=== PATIENT | male | born 1995 | race Caucasian/White ===

== ENCOUNTER → 2020-11-07 | Outpatient (CLI) | payer OTHER | LOC: LAB 07:37 | PROVIDERS: ATTEND Orthopaedic Surgery Sports Medicine | DX: Z01.812 Encounter for preprocedural laboratory examination (principal); Z20.822 Contact with and (suspected) exposure to COVID-19 ==

== ENCOUNTER → 2020-11-08 | Day surgery (SDC) | payer OTHER ==
[~2020-11-08] VITALS: Ht 188 cm; Wt 94.8 kg
--- NOTE | ~2020-11-08 | O ---
[address] [address] OPERATIVE REPORT Name: CHELA PEARL Room #: REG [facility]#: [id number] Admission: 11/08/20 Attend Phys: Denis Balbuena MD Discharge: Date of : 89 Report #: [id number] THIS REPORT FOR: cc: FAM - No family physician/PCP FAM - No family physician/PCP Denis Balbuena MD ~ DATE OF SERVICE: 11/08/2020 SERVICE: Orthopedics. FACILITY: [facility]. SURGEON: Denis Balbuena MD COREMAKING MACHINE SETTER: Ema Fairchild. INDICATION FOR COREMAKING MACHINE SETTER: Extremity positioning, suture management, graft preparation, assistance with reconstruction. PREOPERATIVE DIAGNOSIS: Left knee anterior cruciate ligament tear. POSTOPERATIVE DIAGNOSES: 1. Left knee anterior cruciate ligament tear. 2. Left knee medial plica. 3. Left knee lateral meniscus tear. PROCEDURES: 1. Left knee arthroscopic ACL reconstruction with quadriceps tendon autograft. 2. Left knee partial lateral meniscectomy. 3. Left knee medial plica resection. COMPLICATIONS: None. DRAINS: None. SPECIMENS: None. ANESTHESIA: General with regional. FINDINGS: 1. Intact medial compartment. 2. Partial thickness, posterior root tear of the lateral meniscus treated with simple debridement of less than 5% of total meniscal volume. 3. Intact patellofemoral joint. 4. ACL rupture treated with quad tendon autograft reconstruction with Arthrex [address] [address] OPERATIVE REPORT Name: CHELA PEARL Room #: REG [facility]#: [id number] Admission: 11/08/20 Attend Phys: Denis Balbuena MD Discharge: Date of : 89 Report #: [id number] cortical suspensory fixation on femur and tibia. 5. Medial plica resected with shaver. 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 He presented for definitive treatment. He has history of previous contralateral ACL tear as a freshman in college and had successful return to play after ACL reconstruction with quadriceps tendon autograft. He wishes to return to basketball as indicated, therefore for surgical reconstruction. Risks, benefits, alternatives and indications for surgery were discussed with him in detail. Risks include but not limited to pain, bleeding, infection, injury to nerves or blood vessels, persistent pain, progression of preexisting chondral injury, stiffness, need for further surgery as well as complications related to anesthesia. Despite the risks, he wished to proceed. PROCEDURE IN DETAIL: After left lower extremity was correctly identified as the operative extremity, the patient underwent regional nerve block, then taken to the operating room where general anesthesia with LMA was induced without complications. He was padded appropriately. Prophylactic antibiotics were administered at appropriate time. Tourniquet was applied to the left leg. Left lower extremity was prepped and draped in standard sterile fashion. Timeout procedure performed. The Esmarch was used. Tourniquet inflated to 250 mmHg. A 1-inch incision was made based off the superior pole of the patella. Full-thickness skin flaps were developed and the quadriceps tendon was exposed. A soft tissue quad tendon autograft was then harvested in standard fashion. This was ultimately sized to a 9.5 femoral diameter and 10 tibial diameter. The Arthrex quadriceps fiber tag was used on both the femoral and tibial sides in preparation of the graft which was tensioned on the back table. The diagnostic arthroscopy was then performed a standard anterolateral viewing portals as well as anteromedial working portal and diagnostic arthroscopy was performed. The patellofemoral joint was normal. There were no loose bodies. There was no synovitis. There was noted to be a medial plica, which was resected with a biter followed by the shaver. The medial compartment was evaluated and was found to be normal, otherwise with no meniscus tear or articular cartilage pathology. Leg was placed in the eacsep-te-tomt position. The lateral compartment was carefully evaluated. The majority of the lateral compartment was normal, although the lateral meniscus root just anterior to the ACL had partial thickness fraying on the femoral side and I was concerned that this might catch and propagate as it was sitting directly adjacent to the median of the lateral femoral condyle; therefore, performed a partial lateral meniscectomy, which overall was limited amount of meniscus that did require resection, less than approximately 5% of the meniscal volume. The leg was then placed in the 90-degree position and the Arthrex FlipCutter device was used to create a 9.5 x 28 mm socket and then the FlipCutter was used to make a similar socket on the tibial side. The bony debris was lavaged out of the knee and then [address] [address] OPERATIVE REPORT Name: CHELA PEARL Room #: REG [facility].#: [id number] Admission: 11/08/20 Attend Phys: Denis Balbuena MD Discharge: Date of : 89 Report #: [id number] the graft was passed into the knee through the anteromedial portal and seated in the femoral socket. The graft was then back passed into the tibial socket and then it was tensioned and the knee was taken through a cycled range of motion to eliminate any graft creep and then the cortical fixation was used to securely fix the graft on both the femoral and tibial sides. We then took the knee through a cycled range of motion again and then we tensioned the graft to ensure that it was securely fixed while the knee was held in extension with a reverse Galo maneuver. Galo at this point was negative. The knee was stable and the scope was placed back into the knee, final photographs to be taken and then the arthroscopic effusion was drained, instruments were removed. Portal sites were closed and sterile dressing was applied, followed by compression hose and a PolarCare device and knee immobilizer. He was awakened from anesthesia and taken to recovery room in stable condition. There were no complications. All counts were reported as correct. By: 12 26 Denis Balbuena MD /nt
[2020-11-08 11:36] VITALS: BP 137/84
[2020-11-08 16:28] VITALS: BP 137/84
== END | disposition home or self-care (01) ==
LOC: PRE 08:57 → OR 09:16 → EDSTATUS 13:40 → OR 15:21
PROVIDERS: ATTEND Orthopaedic Surgery Sports Medicine
DX: S83.512A Sprain of anterior cruciate ligament of left knee, initial encounter (principal); S83.282A Other tear of lateral meniscus, current injury, left knee, initial encounter; M67.52 Plica syndrome, left knee; Z98.890 Other specified postprocedural states; Z79.899 Other long term (current) drug therapy; X58.XXXA Exposure to other specified factors, initial encounter; Y93.89 Activity, other specified; Y92.89 Other specified places as the place of occurrence of the external cause; Y99.8 Other external cause status
CPT/HCPCS: 50010; 50101; 50386; 50405; 51320; 52313; 56524; 56525; 56527; 57103; 58297; 58352; 58485; 58486; 58632; 62110; 62900; 64043; 65060; 70005